=== PATIENT | female | born 1945 | race Caucasian/White ===

== ENCOUNTER → 2017-09-01 | Outpatient (REF) | payer MEDICARE, OTHER ==
[2017-09-01 15:29] LABS: IMMUNOGLOBULIN M 21.5 MG/DL (40-230)
== END ==
LOC: M LAB REF 12:27
PROVIDERS: ATTEND Internal Medicine Medical Oncology
DX: C91.10 Chronic lymphocytic leukemia of B-cell type not having achieved remission (principal)

== ENCOUNTER → 2018-01-08 | Outpatient (REF) | payer MEDICARE, OTHER ==
[2018-01-08 18:37] LABS: VITAMIN B12 LEVEL 1084 PG/ML (247-911)
[2018-01-08 20:37] LABS: BASOPHILS 1 % (0-4); MONOCYTES 3 % (0-8); NEUTROPHILS 28 % (35-75)
[2018-01-08 20:43] LABS: ATYPICAL LYMPH 9 % (0-5); LYMPHOCYTES 59 % (16-52); PLATELET ESTIMATE NORMAL (NORMAL)
== END ==
LOC: M LAB REF 17:02
DX: R20.8 Other disturbances of skin sensation (principal); C95.11 Chronic leukemia of unspecified cell type, in remission
CPT/HCPCS: 82607

== ENCOUNTER → 2018-03-11 | Outpatient (REF) | payer MEDICARE, OTHER ==
[2018-03-11 14:14] LABS: ATYPICAL LYMPH 13 % (0-5); BASOPHILS 1 % (0-4); LYMPHOCYTES 51 % (16-52); MONOCYTES 7 % (0-8); NEUTROPHILS 28 % (35-75); PLATELET ESTIMATE NORMAL (NORMAL)
== END ==
LOC: M LAB REF 13:22
DX: C95.11 Chronic leukemia of unspecified cell type, in remission (principal)
CPT/HCPCS: 85007

== ENCOUNTER → 2018-07-07 | Outpatient (REF) | payer MEDICARE, OTHER ==
[2018-07-07 13:00] LABS: CREATININE FOR GFR 0.66 MG/DL (0.55-1.30); GLOMERULAR FILTRATION RATE > 60.0 (>39)
[2018-07-07 13:00] LABS: BLOOD UREA NITROGEN 14 MG/DL (7-18)
== END ==
LOC: M LABDRAW1 11:59
DX: M47.27 Other spondylosis with radiculopathy, lumbosacral region (principal)
CPT/HCPCS: 82565

== ENCOUNTER → 2018-08-11 | Outpatient (REF) | payer MEDICARE, OTHER ==
[2018-08-11 12:59] LABS: BACTERIA, URINE AUTO NEGATIVE (NEGATIVE); MUCUS, URINE SMALL (NEGATIVE); RBC, URINE AUTO 1 /HPF (0-3); SQUAMOUS EPITHELIAL CELL UR AU 0 /HPF (0-6); WBC, URINE AUTO 4 /HPF (0-3)
== END ==
LOC: M LAB REF 11:49
DX: N39.0 Urinary tract infection, site not specified (principal)
CPT/HCPCS: 81015

== ENCOUNTER → 2019-05-19 | Outpatient (REF) | payer MEDICARE, OTHER ==
[~2019-05-19] MED LIST: AMLO5TAB6 PO; ASMA1AER3; MONT10TA2 PO
[2019-05-19 18:38] LABS: ATYPICAL LYMPH 8 % (0-5); BASOPHILS 1 % (0-4); EOSINOPHILS 1 % (0-5); LYMPHOCYTES 66 % (16-52); MONOCYTES 3 % (0-8); NEUTROPHILS 21 % (35-75); PLATELET ESTIMATE NORMAL (NORMAL); SMUDGE CELLS 1+
== END ==
LOC: M LAB REF 17:10
PROVIDERS: ATTEND Nurse Practitioner Adult Health
DX: C95.11 Chronic leukemia of unspecified cell type, in remission (principal)

== ENCOUNTER → 2019-08-19 | Outpatient (REF) | payer MEDICARE, OTHER | LOC: M LAB REF 17:09 | PROVIDERS: ATTEND Nurse Practitioner Adult Health | DX: R10.11 Right upper quadrant pain (principal) ==

== ENCOUNTER → 2020-04-28 | Outpatient (REF) | payer MEDICARE, OTHER ==
[~2020-04-28] MED LIST changes: +MELO7.5T35 PO; -MONT10TA2 PO; +MONT10TA4 PO; +VAGI10TA PV
[2020-05-02 17:07] LABS: Lyme Disease IgG/IgM Antibodie <0.91 ISR (0.00-0.90); Lyme Disease IgM Ab Quantitati <0.80 index (0.00-0.79)
== END ==
LOC: M LAB 19:24
PROVIDERS: ATTEND Physician Assistant
DX: Z11.8 Encounter for screening for other infectious and parasitic diseases (principal)

== ENCOUNTER → 2020-05-19 | Outpatient (REF) | payer MEDICARE, OTHER ==
[2020-05-19 18:06] LABS: ATYPICAL LYMPH 11 % (0-5); BASOPHILS 1 % (0-1); EOSINOPHILS 1 % (0-3); LYMPHOCYTES 57 % (16-44); MONOCYTES 3 % (0-5); NEUTROPHILS 27 % (28-66)
[2020-05-19 18:09] LABS: PLATELET ESTIMATE NORMAL (NORMAL)
== END ==
LOC: M LAB REF 16:40
PROVIDERS: ATTEND Nurse Practitioner Adult Health
DX: C95.11 Chronic leukemia of unspecified cell type, in remission (principal)

== ENCOUNTER → 2020-11-28 | Outpatient (REF) | payer MEDICARE, OTHER ==
[~2020-11-28] MED LIST changes: +AMLO1TAB24 PO; -AMLO5TAB6 PO; -MONT10TA4 PO; +MONT5TAB2 PO
[2020-11-29 14:16] LABS: ATYPICAL LYMPH 9 % (0-5); BASOPHILS 1 % (0-1); EOSINOPHILS 1 % (0-3); LYMPHOCYTES 54 % (16-44); MONOCYTES 3 % (0-5); NEUTROPHILS 31 % (28-66)
[2020-11-29 14:17] LABS: PLATELET ESTIMATE NORMAL (NORMAL); SMUDGE CELLS 3+
== END ==
LOC: M LAB REF 12:44
PROVIDERS: ATTEND Nurse Practitioner Adult Health
DX: C91.11 Chronic lymphocytic leukemia of B-cell type in remission (principal)

== ENCOUNTER → 2021-05-23 | Outpatient (CLI) | payer MEDICARE, OTHER ==
[~2021-05-23] MED LIST changes: +MONT10TA10 PO; -MONT5TAB2 PO
--- NOTE | 2021-05-23 10:59 | REP ---
INDICATION: COUGH COMPARISON: None. TECHNIQUE: PA and lateral. FINDINGS: The mediastinum and cardiac silhouette are normal. The lung emna demonstrate chronic appearing changes without acute consolidation, effusion, or pneumothorax. Two surgical clips identified along the lateral aspect of the mid right lung zone. The skeletal structures are intact and normal. IMPRESSION: No acute cardiopulmonary process. <Electronically signed by Aaron Song > 05/23/21 [id number]
== END ==
LOC: M WUC 10:09
PROVIDERS: ATTEND Nurse Practitioner Adult Health
DX: R05 Cough (principal)

== ENCOUNTER → 2021-06-11 | Outpatient (CLI) | payer MEDICARE, OTHER ==
--- NOTE | 2021-06-11 15:16 | REP ---
INDICATION: COUGH. Status post bilateral mastectomy for breast malignancy. COMPARISON: None. TECHNIQUE: Helical scanning is acquired. 3 mm axial images are generated. Coronal and sagittal MPR and coronal MIP images are generated. FINDINGS: Digital preliminary biomedical field service engineer radiograph is unremarkable. There is no evidence of pleural or pericardial effusion. There is a fairly large calcified hepatic granuloma against the dome of the diaphragm. Normal adrenal glands are seen. The visualized upper abdominal structures are otherwise unremarkable. No hilar or mediastinal mass or adenopathy is observed. There is left coronary artery vascular calcification and some right.00 there is mild wedging of what appears to be the T12 vertebral body. This is unchanged from the comparison CT study of the thoracic spine dated March 06, 2018. On lung window settings, there is no evidence of pulmonary mass or suspicious nodule. No infiltrate is seen. There is minimal linear fibrosis in the right lower lobe and right middle lobe. No endobronchial lesion is seen. No axillary, subclavian, or supraclavicular adenopathy is seen. IMPRESSION: Status post bilateral mastectomy. Otherwise no active disease. <Electronically signed by Jori Kerns > 06/11/21 [id number]
== END ==
LOC: M PLAIMG 11:19
PROVIDERS: ATTEND Nurse Practitioner Adult Health
DX: R05 Cough (principal)

== ENCOUNTER 2021-06-25 08:06 | Emergency (ER) | payer MEDICARE, OTHER ==
[~2021-06-25] VITALS: Ht 167.6 cm; Wt 80.9 kg
--- NOTE | 2021-06-25 09:49 | REP ---
INDICATION: Right knee pain COMPARISON: None. TECHNIQUE: Seven views right knee. FINDINGS: There is no evidence of acute fracture, dislocation, or intrinsic bone disease.Mild patellofemoral compartment narrowing with subchondral sclerosis. There is mild superior patellar spurring. There is mild medial joint space narrowing. IMPRESSION: No fracture or dislocation. Mild degenerative changes. <Electronically signed by Jabier Thomas > 06/25/21 [id number]
[2021-06-25] MEDS ORDERED: KETOROLAC TROMETHAMINE 10 MG TAB PO ONE (10:50)
[2021-06-25] MEDS ORDERED: NAPR-837 PO (10:54)
[2021-06-25 11:42] VITALS: BP 128/62
== END 2021-06-25 11:40 | disposition home or self-care (01) ==
LOC: M ED 08:06
DX: M25.561 Pain in right knee (principal); M17.11 Unilateral primary osteoarthritis, right knee; M85.861 Other specified disorders of bone density and structure, right lower leg; C91.10 Chronic lymphocytic leukemia of B-cell type not having achieved remission; E11.9 Type 2 diabetes mellitus without complications; J45.909 Unspecified asthma, uncomplicated; F41.9 Anxiety disorder, unspecified; Z79.899 Other long term (current) drug therapy

== ENCOUNTER → 2021-07-12 | Outpatient (CLI) | payer MEDICARE, OTHER ==
[~2021-07-12] MED LIST changes: +NAPR-837 PO
--- NOTE | 2021-07-12 10:25 | REP ---
INDICATION: TEAR OF MEDIAL MENISCUS. COMPARISON: None. TECHNIQUE: Sagittal spin-echo proton density, T2 STIR and T2 FLASH. Coronal spin-echo proton density and fat suppressed proton density. Axial fat suppressed proton density. FINDINGS: There is grade 3 signal change seen in the anterior and posterior horns of the medial meniscus near the periphery. The anterior and posterior horns of the lateral meniscus are within normal limits. The anterior and posterior cruciate ligaments are intact. The quadriceps and patellar tendons are intact. The medial and lateral collateral ligaments are intact. The medial and lateral patellar retinacula are intact. There is thinning and irregularity of all articular cartilages particularly the patellar articular cartilage and the cartilaginous surfaces of the medial compartment. There is tricompartmental marginal osteophytosis. There is a slight joint effusion. There is no Fox's cyst. The marrow signal is within normal limits. IMPRESSION: 1. The medial meniscus is torn as described above. 2. There is a joint effusion. 3. Tricompartmental chondromalacia as described above. 4. Tricompartmental marginal osteophytosis. <Electronically signed by Allan Javier > 07/12/21 [id number]
== END ==
LOC: M PLAIMG 08:30
PROVIDERS: ATTEND Orthopaedic Surgery Sports Medicine
DX: S83.242A Other tear of medial meniscus, current injury, left knee, initial encounter (principal); W18.30XA Fall on same level, unspecified, initial encounter; Y92.009 Unspecified place in unspecified non-institutional (private) residence as the place of occurrence of the external cause

== ENCOUNTER 2021-10-04 16:22 | Outpatient (CLI) | payer MEDICARE, OTHER ==
[~2021-10-04] VITALS: Ht 170.2 cm; Wt 80.0 kg
[~2021-10-04 16:22] MED LIST changes: +ALBUTEROL 90 MCG/ACT 8GM HFA INHALER INH PRN; +ALBUTEROL SULFATE 2.5 MG/0.5 ML INH NEB SOLN INH PRN; +EPINEPHrine INJ 1 MG/ML 1ML AMP IM PRN; +NS 1,000 ML IV SCH; +diphenhydrAMINE 50MG/ML VIAL (J1200) IV PRN; +methylPREDNISolone 125MG 2ML VIAL IV PRN
[2021-10-04 16:30] VITALS: BP 169/68
[2021-10-04] MEDS ORDERED: ACETAMINOPHEN TAB 650MG DOSE (2X325MG) PO ONE (17:30)
[2021-10-04] MEDS ORDERED: diphenhydrAMINE 25MG CAP PO ONE (17:30)
[2021-10-04] MEDS ORDERED: CASIRIVIMAB (REGN10933) 600 MG, IMDEVIMAB (REGN10987) 600 MG in NS 250 ML IV ONE (17:30)
[2021-10-04 18:15] VITALS: BP 163/74
[2021-10-04 19:00] VITALS: BP 158/64
[2021-10-04 19:38] VITALS: BP 150/71
== END 2021-10-04 19:45 | disposition home or self-care (01) ==
LOC: M INFU 16:22
PROVIDERS: ATTEND Nurse Practitioner Adult Health
DX: U07.1 COVID-19 (principal)

== ENCOUNTER → 2022-02-27 | Outpatient (REF) | payer MEDICARE, OTHER ==
[~2022-02-27] MED LIST changes: -ALBUTEROL 90 MCG/ACT 8GM HFA INHALER INH PRN; -ALBUTEROL SULFATE 2.5 MG/0.5 ML INH NEB SOLN INH PRN; -EPINEPHrine INJ 1 MG/ML 1ML AMP IM PRN; -MONT10TA10 PO; +MONT10TA97 PO; -NS 1,000 ML IV SCH; -diphenhydrAMINE 50MG/ML VIAL (J1200) IV PRN; -methylPREDNISolone 125MG 2ML VIAL IV PRN
[2022-02-27 19:27] LABS: LYMPHOCYTES 75 % (16-44); NEUTROPHILS 25 % (28-66)
[2022-02-27 19:28] LABS: PLATELET ESTIMATE NORMAL (NORMAL)
== END ==
LOC: M LAB REF 16:32
PROVIDERS: ATTEND Nurse Practitioner Adult Health
DX: C91.11 Chronic lymphocytic leukemia of B-cell type in remission (principal)

== ENCOUNTER → 2022-02-27 | Outpatient (REF) | payer MEDICARE, OTHER | LOC: M LAB REF 16:30 | PROVIDERS: ATTEND Nurse Practitioner Adult Health | DX: R41.81 Age-related cognitive decline (principal) ==

== ENCOUNTER → 2022-04-25 | Outpatient (CLI) | payer MEDICARE, OTHER | LOC: M WUC 08:22 | PROVIDERS: ATTEND Nurse Practitioner Adult Health | DX: J98.8 Other specified respiratory disorders (principal) ==

== ENCOUNTER → 2022-07-15 | Outpatient (REF) | payer MEDICARE, OTHER | LOC: M LAB REF 12:02 | PROVIDERS: ATTEND Nurse Practitioner Adult Health | DX: N39.0 Urinary tract infection, site not specified (principal) ==

== ENCOUNTER 2022-08-06 20:41 | Observation (INO) | payer MEDICARE, OTHER ==
[~2022-08-06] VITALS: Ht 167.6 cm; Wt 82.2 kg
[2022-08-06] MEDS ORDERED: ONDANSETRON 4MG 2ML VIAL IV ONE (21:25)
[2022-08-06] MEDS ORDERED: KETOROLAC 30 MG/ML 1ML VIAL IV ONE (21:25)
[2022-08-06 21:45] LABS: HEMATOCRIT 41.7 % (36.0-47.0); HEMOGLOBIN 13.4 g/dl (12.0-15.5); MEAN CORPUSCULAR HEMOGLOBIN 29.2 pg (27.0-33.0); MEAN CORPUSCULAR HGB CONC 32.1 g/dl (32.0-36.5); MEAN CORPUSCULAR VOLUME 90.8 fl (80.0-96.0); PLATELET COUNT, AUTOMATED 241 10^3/uL (150-450); RED BLOOD COUNT 4.59 10^6/uL (4.00-5.40); WHITE BLOOD COUNT 29.6 10^3/uL (4.0-10.0)
[2022-08-06] MEDS ORDERED: ISOVUE-370 76% 100ML VIAL As Ordered ONE (22:12)
[2022-08-06 22:22] LABS: ALBUMIN 4.2 GM/DL (3.2-5.2); BILIRUBIN,DIRECT 0.1 MG/DL (0.0-0.2); BILIRUBIN,TOTAL 0.5 MG/DL (0.2-1.0); TOTAL PROTEIN 7.2 GM/DL (6.4-8.2)
[2022-08-06 22:23] LABS: ATYPICAL LYMPH 3 % (0-5); BASOPHILS 1 % (0-1); EOSINOPHILS 1 % (0-3); LYMPHOCYTES 44 % (16-44); MONOCYTES 4 % (0-5); NEUTROPHILS 40 % (28-66); PLATELET ESTIMATE NORMAL (NORMAL); SMUDGE CELLS 2+
[2022-08-07] MEDS ORDERED: ACETAMINOPHEN TAB 650MG DOSE (2X325MG) PO PRN (01:40)
[2022-08-07] MEDS ORDERED: KETOROLAC 30 MG/ML 1ML VIAL IV PRN (01:40)
[2022-08-07] MEDS ORDERED: ONDANSETRON 4MG 2ML VIAL IV PRN (01:40)
[2022-08-07] MEDS ORDERED: LR 1,000 ML IV SCH (01:40)
[2022-08-07] MEDS ORDERED: NS 1,000 ML IV SCH (01:45)
[2022-08-07] MEDS ORDERED: OCUV1CAP4 PO (02:33)
[2022-08-07] MEDS ORDERED: VITATAB73 PO (02:33)
[2022-08-07] MEDS ORDERED: OMEG10002 PO (02:33)
[2022-08-07] MEDS ORDERED: VALS1TAB66 PO (02:33)
[2022-08-07] MEDS ORDERED: VITMTA PO (02:33)
[2022-08-07] MEDS ORDERED: BUPR150T12 PO (02:33)
[2022-08-07] MEDS ORDERED: COQ-100C5 PO (02:33)
[2022-08-07] MEDS ORDERED: RA N1TAB PO (02:33)
[2022-08-07] MEDS ORDERED: VITA250T4 PO (02:33)
[2022-08-07] MEDS ORDERED: D31000TA PO (02:33)
[2022-08-07] MEDS ORDERED: HOME MED LIST COMPLETE! XX SCH (02:35)
[2022-08-07 03:05] VITALS: BP 139/70
[2022-08-07] MEDS: cefTRIAXone SOD 1 GM in D5W MINI-BAG PLUS 50 ML IV SCH ×2 (03:07→14:18)
[2022-08-07 06:51] VITALS: BP 129/59
[2022-08-07] MEDS: buPROPion **XL** TABLET 150MG (WELLBUTRIN XL) PO SCH (08:25)
[2022-08-07] MEDS: ASCORBIC ACID 250 MG TAB PO SCH (08:25)
[2022-08-07] MEDS: OMEGA-3 1000MG CAPSULE PO SCH (08:25)
[2022-08-07] MEDS: VITAMIN D 1,000 INTERNATIONAL UNITS TABLET PO SCH (08:25)
[2022-08-07] MEDS: MULTIVITAMINS/MINERALS THERAP 1 TAB PO SCH (08:25)
[2022-08-07 14:00] VITALS: BP 123/56
[2022-08-07 20:02] VITALS: BP 152/56
[2022-08-07] MEDS ORDERED: VALSARTAN 80 MG TAB (DIOVAN) PO SCH (21:00)
[2022-08-07] MEDS ORDERED: ENOXAPARIN 40MG/0.4ML SYRINGE (J1650 PER 10MG) SC SCH (21:00)
[2022-08-07 21:05] VITALS: BP 120/48
[2022-08-08 06:00] VITALS: BP 126/55
[2022-08-08 06:51] LABS: HEMATOCRIT 36.6 % (36.0-47.0); HEMOGLOBIN 11.5 g/dl (12.0-15.5); MEAN CORPUSCULAR HGB CONC 31.4 g/dl (32.0-36.5); MEAN CORPUSCULAR VOLUME 92.4 fl (80.0-96.0); PLATELET COUNT, AUTOMATED 206 10^3/uL (150-450); RED BLOOD COUNT 3.96 10^6/uL (4.00-5.40); WHITE BLOOD COUNT 17.2 10^3/uL (4.0-10.0)
[2022-08-08 07:22] LABS: BLOOD UREA NITROGEN 18 MG/DL (7-18); CALCIUM LEVEL 8.8 MG/DL (8.8-10.2); CARBON DIOXIDE LEVEL 29 MEQ/L (21-32); CHLORIDE LEVEL 108 MEQ/L (98-107); CREATININE FOR GFR 0.68 MG/DL (0.55-1.30); GLOMERULAR FILTRATION RATE > 60.0 (>39); GLUCOSE, FASTING 112 MG/DL (70-100); MAGNESIUM LEVEL 2.4 MG/DL (1.8-2.4); PHOSPHORUS LEVEL 3.5 MG/DL (2.5-4.9); POTASSIUM SERUM 4.3 MEQ/L (3.5-5.1); SODIUM LEVEL 140 MEQ/L (136-145)
[2022-08-08 08:30] VITALS: BP 130/55
[2022-08-08] MEDS ORDERED: MIRALAX *UNIT DOSE* 17GM PACKET PO PRN (09:45)
[2022-08-08] MEDS ORDERED: MIRA1POW3 PO (09:55)
[2022-08-08] MEDS: OMEGA-3 1000MG CAPSULE PO SCH (10:12)
[2022-08-08] MEDS: MULTIVITAMINS/MINERALS THERAP 1 TAB PO SCH (10:12)
[2022-08-08] MEDS: buPROPion **XL** TABLET 150MG (WELLBUTRIN XL) PO SCH (10:13)
[2022-08-08] MEDS: VITAMIN D 1,000 INTERNATIONAL UNITS TABLET PO SCH (10:14)
[2022-08-08] MEDS: ASCORBIC ACID 250 MG TAB PO SCH (10:14)
[2022-08-16] MEDS ORDERED: FLUT22IN INH (07:46)
[2022-08-16] MEDS ORDERED: SUPETAB44 PO (07:59)
[2022-08-16] MEDS ORDERED: TURM500C PO (07:59)
[2022-08-16] MEDS ORDERED: RA N1TAB PO (07:59)
[2022-08-16] MEDS ORDERED: [UNRECOGNIZED DRUG - CODE] PO (07:59)
[2022-08-16] MEDS ORDERED: VITMTA PO (07:59)
[2022-08-16] MEDS ORDERED: COQ-100C5 PO (07:59)
[2022-08-16] MEDS ORDERED: L-GL500T5 PO (07:59)
[2022-08-16] MEDS ORDERED: [UNRECOGNIZED DRUG - OTHER] PO (07:59)
[2022-08-16] MEDS ORDERED: [UNRECOGNIZED DRUG - OTHER] XX (07:59)
[2022-08-16] MEDS ORDERED: CINN500C15 PO (07:59)
[2022-08-16] MEDS ORDERED: [UNRECOGNIZED DRUG - CODE] NS (07:59)
[2022-08-16] MEDS ORDERED: [UNRECOGNIZED DRUG - CODE] PO (07:59)
[2022-08-16] MEDS ORDERED: MSM1000C PO (07:59)
[2022-08-16] MEDS ORDERED: ASCO500C3 PO (07:59)
[2022-08-16] MEDS ORDERED: D 50CAP3 PO (07:59)
== END 2022-08-08 11:46 | disposition home or self-care (01) ==
LOC: EDBD 20:41 → M ED 20:41 → M ED INP 20:42 → M MSPAV 08-07 02:54
PROVIDERS: ADMIT Family Medicine; ATTEND Student in an Organized Health Care Education/Training Program
DX: N13.2 Hydronephrosis with renal and ureteral calculous obstruction (principal); N36.8 Other specified disorders of urethra; K76.0 Fatty (change of) liver, not elsewhere classified; D72.829 Elevated white blood cell count, unspecified; C91.11 Chronic lymphocytic leukemia of B-cell type in remission; M19.90 Unspecified osteoarthritis, unspecified site; I10 Essential (primary) hypertension; J45.909 Unspecified asthma, uncomplicated; F41.9 Anxiety disorder, unspecified; F32.A Depression, unspecified; Z80.3 Family history of malignant neoplasm of breast; R33.9 Retention of urine, unspecified; M54.9 Dorsalgia, unspecified; G89.29 Other chronic pain; H57.052 Tonic pupil, left eye; S22.080D Wedge compression fracture of T11-T12 vertebra, subsequent encounter for fracture with routine healing; N39.41 Urge incontinence; Z79.899 Other long term (current) drug therapy; Z90.13 Acquired absence of bilateral breasts and nipples; Z87.891 Personal history of nicotine dependence
CPT/HCPCS: 36415; 74177; 76775; 80047; 80048; 80076; 81000; 81015; 83605; 83690; 83735; 84100; 85025; 85027; 87040; 87635; 96365; 96366; 96372; 96375; 99284; G0378; J0696; J1650; J1885; J2405; Q9967

== ENCOUNTER → 2022-08-12 | Outpatient (REF) | payer MEDICARE ==
[~2022-08-12] MED LIST changes: +BUPR150T12 PO; +COQ-100C5 PO; +D31000TA PO; +MIRA1POW3 PO; +OCUV1CAP4 PO; +OMEG10002 PO; +RA N1TAB PO; +VALS1TAB66 PO; +VITA250T4 PO; +VITATAB73 PO; +VITMTA PO
[2022-08-12 16:10] LABS: APPEARANCE, URINE MANUAL CLEAR (CLEAR); COLOR, URINE MANUAL LT YELLOW (YELLOW); SPECIFIC GRAVITY,URINE MANUAL 1.005 (1.002-1.035)
[2022-08-12 16:11] LABS: BILIRUBIN, URINE MANUAL NEGATIVE (NEGATIVE); BLOOD URINE MANUAL NEGATIVE (NEGATIVE); GLUCOSE, URINE (UA) MANUAL NEGATIVE (NEGATIVE); KETONE, URINE MANUAL NEGATIVE (NEGATIVE); NITRITE, URINE MANUAL NEGATIVE (NEGATIVE); PROTEIN, URINE MANUAL NEGATIVE (NEGATIVE); UROBILINOGEN, URINE MANUAL NORMAL (NORMAL)
[2022-08-12 16:12] LABS: LEUKOCYTE ESTERASE, URINE MAN TRACE (NEGATIVE)
[2022-08-12 17:02] LABS: WBC, URINE 0-1 /hpf (0-3)
[2022-08-12 17:03] LABS: BACTERIA, URINE SMALL AMOUNT; HYALINE CAST, URINE NONE SEEN /lpf (0-1); RBC, URINE 0-1 /hpf (0-3); SQUAMOUS EPITHELIAL CELL URINE SMALL AMOUNT /hpf (SMALL AMT)
== END ==
LOC: M SMT 15:10
PROVIDERS: ATTEND Physician Assistant
DX: N20.1 Calculus of ureter (principal)

== ENCOUNTER → 2022-08-19 | Outpatient (CLI) | payer MEDICARE, OTHER ==
[~2022-08-19] MED LIST changes: +CINN500C15 PO; +D 50CAP3 PO; +FLUT22IN INH; +L-GL500T5 PO; +MSM1000C PO; +PURE500C5 PO; +SUPETAB44 PO; +TURM500C PO; +[UNRECOGNIZED DRUG - CODE] NS; +[UNRECOGNIZED DRUG - CODE] PO; +[UNRECOGNIZED DRUG - CODE] PO; +[UNRECOGNIZED DRUG - OTHER] PO; +[UNRECOGNIZED DRUG - OTHER] XX
== END ==
LOC: M LABSMTC 10:27
PROVIDERS: ATTEND Anesthesiology
DX: Z01.812 Encounter for preprocedural laboratory examination (principal); Z20.822 Contact with and (suspected) exposure to COVID-19

== ENCOUNTER → 2022-08-19 | Outpatient (CLI) | payer MEDICARE, OTHER | LOC: M WHC 09:33 | PROVIDERS: ATTEND Physician Assistant | DX: N20.1 Calculus of ureter (principal) ==

== ENCOUNTER 2022-08-22 08:46 | Day surgery (SDC) | payer MEDICARE, OTHER ==
[~2022-08-22] VITALS: Ht 167.6 cm; Wt 80.6 kg
[~2022-08-22 08:46] MED LIST changes: +NS 1,000 ML IV ONE
[2022-08-22] MEDS ORDERED: LIDOCAINE 2% 100MG/5ML SDV (FOR ANES.) As Ordered ONE (10:11)
[2022-08-22] MEDS ORDERED: propofoL 200 MG/20 ML VIAL As Ordered ONE (10:11)
[2022-08-22] MEDS ORDERED: PHENYLephrine 500MCG 5ML (100MCG/ML) SYRINGE As Ordered ONE (10:18)
[2022-08-22 10:55] VITALS: BP 154/70
== END 2022-08-22 11:02 | disposition home or self-care (01) ==
LOC: M OPP 08:46
PROVIDERS: ATTEND Internal Medicine Gastroenterology
DX: Z12.11 Encounter for screening for malignant neoplasm of colon (principal); Z86.010 Personal history of colon polyps; D12.4 Benign neoplasm of descending colon; K63.5 Polyp of colon; K57.30 Diverticulosis of large intestine without perforation or abscess without bleeding; Z79.51 Long term (current) use of inhaled steroids; Z79.899 Other long term (current) drug therapy; J45.909 Unspecified asthma, uncomplicated; I10 Essential (primary) hypertension; Z87.442 Personal history of urinary calculi; Z87.891 Personal history of nicotine dependence
CPT/HCPCS: 45385; 88305; J2370

== ENCOUNTER → 2022-09-19 | Outpatient (REF) | payer MEDICARE, OTHER ==
[~2022-09-19] MED LIST changes: -NS 1,000 ML IV ONE
[2022-09-19 18:59] LABS: ATYPICAL LYMPH 2 % (0-5); EOSINOPHILS 1 % (0-3); LYMPHOCYTES 69 % (16-44); MONOCYTES 2 % (0-5); NEUTROPHILS 26 % (28-66)
[2022-09-19 19:00] LABS: PLATELET ESTIMATE NORMAL (NORMAL); SMUDGE CELLS 1+
== END ==
LOC: M LAB REF 16:01
PROVIDERS: ATTEND Internal Medicine
DX: Z01.810 Encounter for preprocedural cardiovascular examination (principal); C91.11 Chronic lymphocytic leukemia of B-cell type in remission

== ENCOUNTER → 2022-09-19 | Outpatient (CLI) | payer MEDICARE, OTHER ==
[~2022-09-19] MED LIST changes: +ASCO500C3 PO; +OXYB5TAB10 PO; -PURE500C5 PO
== END ==
LOC: M RAD 12:27
PROVIDERS: ATTEND Urology
DX: N20.1 Calculus of ureter (principal)

== ENCOUNTER → 2022-09-20 | Outpatient (REF) | payer MEDICARE, OTHER ==
[~2022-09-20] MED LIST changes: -ASCO500C3 PO; -OXYB5TAB10 PO; +PURE500C5 PO
== END ==
LOC: M LAB REF 12:05
PROVIDERS: ATTEND Internal Medicine
DX: Z01.818 Encounter for other preprocedural examination (principal); N39.0 Urinary tract infection, site not specified; N20.1 Calculus of ureter

== ENCOUNTER → 2022-09-25 | Outpatient (CLI) | payer MEDICARE, OTHER ==
[~2022-09-25] MED LIST changes: +ASCO500C3 PO; -PURE500C5 PO
== END ==
LOC: M LABSMTC 09:57
PROVIDERS: ATTEND Anesthesiology
DX: Z01.818 Encounter for other preprocedural examination (principal); Z11.52 Encounter for screening for COVID-19

== ENCOUNTER 2022-09-30 09:07 | Day surgery (SDC) | payer MEDICARE, OTHER ==
[~2022-09-30] VITALS: Ht 167.6 cm; Wt 82.5 kg
[~2022-09-30 09:07] MED LIST changes: +ceFAZolin SOD 2 GM in IV 1 EA IV ONE
[2022-09-30] MEDS ORDERED: LR 1,000 ML IV SCH ×2 (09:55→12:10)
[2022-09-30] MEDS ORDERED: ISOVUE-300 61% 50ML VIAL As Ordered ONE (10:50)
[2022-09-30] MEDS ORDERED: MIDAZOLAM INJ 2MG/2ML VIAL (J2250 PER 1MG) As Ordered ONE (11:01)
[2022-09-30] MEDS ORDERED: dexameTHASONE 4 MG/ML 1ML VIAL (J1100 PER 1MG) As Ordered ONE (11:01)
[2022-09-30] MEDS ORDERED: ONDANSETRON 4MG 2ML VIAL As Ordered ONE (11:01)
[2022-09-30] MEDS ORDERED: fentaNYL 100 MCG/2 ML INJECTION As Ordered ONE (11:01)
[2022-09-30] MEDS ORDERED: propofoL 200 MG/20 ML VIAL As Ordered ONE (11:01)
[2022-09-30] MEDS ORDERED: LIDOCAINE 2% 100MG/5ML SDV (FOR ANES.) As Ordered ONE (11:01)
[2022-09-30] MEDS ORDERED: ePHEDrine SULFATE 25 MG/5 ML(5MG/ML) SYRINGE As Ordered ONE (11:54)
[2022-09-30] MEDS ORDERED: ACETAMINOPHEN 1000MG 100ML IV BAG As Ordered ONE (11:57)
[2022-09-30] MEDS ORDERED: fentaNYL 100 MCG/2 ML INJECTION IV PRN (12:10)
[2022-09-30] MEDS ORDERED: HYDROMORPHONE HCL 0.5 MG/ 0.5 ML SYRINGE (J1170 PER 1) IV PRN (12:10)
[2022-09-30] MEDS ORDERED: oxyCODONE 5MG TAB PO PRN (12:10)
[2022-09-30] MEDS ORDERED: ONDANSETRON 4MG 2ML VIAL IV PRN (12:10)
[2022-09-30] MEDS ORDERED: OXYB5TAB10 PO (12:37)
[2022-09-30] MEDS ORDERED: PERCOCET 5MG/325MG TAB PO PRN (12:50)
[2022-09-30] MEDS ORDERED: oxyBUTYnin 5 MG TAB PO PRN (12:50)
[2022-09-30 13:05] VITALS: BP 150/67
[2022-10-05 11:12] LABS: Ca Ox Monohydrate 100 % (.); Size 6x5 mm (.)
== END 2022-09-30 15:00 | disposition home or self-care (01) ==
LOC: M SDC 09:07
PROVIDERS: ATTEND Urology
DX: N20.2 Calculus of kidney with calculus of ureter (principal); N28.89 Other specified disorders of kidney and ureter; N13.39 Other hydronephrosis
CPT/HCPCS: 52300; 52332; 52352; 74420; 82365; C1769; C1894; C2617; J0131; J0690; J1100; J2250; J2405; J3010; Q9967

== ENCOUNTER → 2022-12-09 | Outpatient (CLI) | payer MEDICARE, OTHER ==
[~2022-12-09] MED LIST changes: -ASMA1AER3; +MOME13HF5; -MSM1000C PO; +OXYB5TAB10 PO; +RA M1000 PO; -ceFAZolin SOD 2 GM in IV 1 EA IV ONE
== END ==
LOC: M WUC 13:50
PROVIDERS: ATTEND Nurse Practitioner Adult Health
DX: J70.5 Respiratory conditions due to smoke inhalation (principal)

== ENCOUNTER → 2023-05-28 | Outpatient (CLI) | payer MEDICARE, OTHER | LOC: M PLALAB 10:49 → M PLAIMG 10:49 | PROVIDERS: ATTEND Urology | DX: N20.0 Calculus of kidney (principal); K59.00 Constipation, unspecified; Z88.5 Allergy status to narcotic agent; Z87.891 Personal history of nicotine dependence | CPT/HCPCS: 74018; G0463 ==

== ENCOUNTER → 2023-07-23 | Outpatient (REF) | payer MEDICARE, OTHER ==
[2023-07-23 19:09] LABS: LYMPHOCYTES 71 % (16-44); MONOCYTES 4 % (0-5); NEUTROPHILS 25 % (28-66)
[2023-07-23 19:11] LABS: PLATELET ESTIMATE DECREASED (NORMAL); SMUDGE CELLS 1+
[2023-07-23 19:13] LABS: ANISOCYTOSIS 1+; MICROCYTOSIS 1+
[2023-07-23 19:22] LABS: POIKILOCYTOSIS 1+
[2023-07-23 19:23] LABS: BURR CELLS 1+
== END ==
LOC: M LAB REF 12:13
PROVIDERS: ATTEND Nurse Practitioner Family
DX: N39.0 Urinary tract infection, site not specified (principal); R73.03 Prediabetes

== ENCOUNTER → 2023-12-24 | Outpatient (CLI) | payer MEDICARE, OTHER ==
[~2023-12-24] MED LIST changes: -OXYB5TAB10 PO; +OXYB5TAB11 PO
== END ==
LOC: M WUC 14:31
PROVIDERS: ATTEND Nurse Practitioner Family
DX: I51.7 Cardiomegaly (principal); R05.1 Acute cough; D72.829 Elevated white blood cell count, unspecified

== ENCOUNTER → 2023-12-24 | Outpatient (REF) | payer MEDICARE, OTHER ==
[2023-12-24 17:02] LABS: RSV AMPLIFICATION NEGATIVE (NEGATIVE)
[2023-12-24 18:16] LABS: ATYPICAL LYMPH 2 % (0-5); EOSINOPHILS 1 % (0-3); LYMPHOCYTES 47 % (16-44); MONOCYTES 1 % (0-5); NEUTROPHILS 48 % (28-66)
[2023-12-24 18:17] LABS: PLATELET ESTIMATE NORMAL (NORMAL)
== END ==
LOC: M LAB REF 16:10
PROVIDERS: ATTEND Nurse Practitioner Family
DX: R05.1 Acute cough (principal)

== ENCOUNTER → 2024-03-04 | Outpatient (REF) | payer MEDICARE, OTHER ==
[~2024-03-04] MED LIST changes: -MIRA1POW3 PO; +MIRA33506 PO; -OXYB5TAB11 PO; +OXYB5TAB14 PO
[2024-03-04 19:09] LABS: ATYPICAL LYMPH 5 % (0-5); BASOPHILS 1 % (0-1); LYMPHOCYTES 79 % (16-44); MONOCYTES 4 % (0-5); NEUTROPHILS 11 % (28-66)
[2024-03-04 19:10] LABS: PLATELET ESTIMATE NORMAL (NORMAL); SMUDGE CELLS 1+
== END ==
LOC: M LAB REF 17:15
PROVIDERS: ATTEND Internal Medicine
DX: D72.89 Other specified disorders of white blood cells (principal)

== ENCOUNTER → 2024-06-01 | Outpatient (CLI) | payer OTHER ==
[~2024-06-01] MED LIST changes: +VITA250T27 PO; -VITA250T4 PO
== END ==
LOC: M PLAIMG 10:03
PROVIDERS: ATTEND Urology
DX: N20.0 Calculus of kidney (principal)

== ENCOUNTER → 2024-07-20 | Outpatient (REF) | payer OTHER, MEDICARE ==
[2024-07-20 20:39] LABS: ATYPICAL LYMPH 2 % (0-5); LYMPHOCYTES 69 % (16-44); MONOCYTES 3 % (0-5); NEUTROPHILS 26 % (28-66); PLATELET ESTIMATE NORMAL (NORMAL)
== END ==
LOC: M LAB REF 17:24
PROVIDERS: ATTEND Nurse Practitioner Family
DX: C91.11 Chronic lymphocytic leukemia of B-cell type in remission (principal)

== ENCOUNTER → 2024-11-19 | Outpatient (CLI) | payer MEDICARE, OTHER | LOC: M PLAIMG 14:23 | PROVIDERS: ATTEND Orthopaedic Surgery | DX: M54.50 Low back pain, unspecified (principal) ==

== ENCOUNTER → 2024-12-24 | Outpatient (CLI) | payer MEDICARE, OTHER | LOC: M WUC 15:21 | PROVIDERS: ATTEND Nurse Practitioner Family | DX: R06.2 Wheezing (principal) ==

== ENCOUNTER → 2025-06-28 | Outpatient (REF) | payer MEDICARE, OTHER ==
[2025-06-28 20:01] LABS: ATYPICAL LYMPH 4 % (0-5); LYMPHOCYTES 55 % (16-44); MONOCYTES 3 % (0-5); NEUTROPHILS 38 % (28-66)
[2025-06-28 20:02] LABS: PLATELET ESTIMATE NORMAL (NORMAL)
== END ==
LOC: M LAB REF 17:16
PROVIDERS: ATTEND Nurse Practitioner Family
DX: C91.11 Chronic lymphocytic leukemia of B-cell type in remission (principal)

== ENCOUNTER → 2025-07-12 | Outpatient (REF) | payer MEDICARE, OTHER ==
[2025-07-12 19:38] LABS: IRON (FE) 58.0 UG/DL (50-170); PERCENT SATURATION 19.1 % (13.2-45.0)
== END ==
LOC: M LAB REF 17:40
PROVIDERS: ATTEND Nurse Practitioner Family
DX: Z01.818 Encounter for other preprocedural examination (principal); M25.569 Pain in unspecified knee; M17.12 Unilateral primary osteoarthritis, left knee

== ENCOUNTER → 2025-11-01 | Outpatient (REF) | payer OTHER, MEDICARE ==
[~2025-11-01] MED LIST changes: +ARNU1INH3 INH
[2025-11-01 19:21] LABS: EOSINOPHILS 1 % (0-3); LYMPHOCYTES 38 % (16-44); MONOCYTES 5 % (0-5); NEUTROPHILS 46 % (28-66)
[2025-11-01 19:23] LABS: PLATELET ESTIMATE NORMAL (NORMAL)
[2025-11-01 19:29] LABS: ATYPICAL LYMPH 9 % (0-5); METAMYELOCYTES 1 % (0-0)
== END ==
LOC: M LAB REF 17:23
PROVIDERS: ATTEND Nurse Practitioner Family
DX: C91.11 Chronic lymphocytic leukemia of B-cell type in remission (principal); D72.829 Elevated white blood cell count, unspecified